=== PATIENT | female | born 1940 | race Caucasian/White ===

== ENCOUNTER 2016-07-14 16:43 | Inpatient (IN) | payer MEDICARE, BC ==
[~2016-07-14 16:43] MED LIST: CALCIUM +D & M1 EACH PO; COREG25 MG PO; COUMADIN5 M2 PO; DETROL2 MG PO; K-DUR20 ME1 PO; KEPPRA500 M3 PO; LEVAQUIN250 MG PO; LEVOTHROID25 MCG PO; LEVOTHYROXINE112 MC3 PO; LISINOPRIL40 M1 PO; MILK OF MAGNES311 MG PO; MIRALAX17 G2 PO; MOBIC15 M1 PO; MULTIVITAMIN1 TAB PO; NORCO 5/325 TAB1 TAB PO; SENOKOT-S TABL1 EACH PO; TAMBOCOR100 MG PO; TEKTURNA300 MG PO; TYLENOL325 M2 PO; ULTRAM50 M1 PO
[2016-07-14 18:28] LABS: INR 1.5 INR (0.9-1.1); PROTHROMBIN TIME 17.8 SECONDS (9.0-13.6)
[2016-07-14 19:55] LABS: BASO % 0.2 % (0-2); HCT-HEMATOCRIT 33.4 % (34.0-49.0); IMMATURE GRANULOCYTES ABSOLUTE 0.03 tho/cmm (0-0.03); IMMATURE GRANULOCYTES PERCENT 0.3 % (0-0.3); LYMPH % 4.2 % (20-45); LYMPH ABSOLUTE COUNT 0.4 tho/cmm (0.8-4.5); MCH (MEAN CORPUSCULAR HGB) 28.4 pg (28.0-32.0); MCHC MEAN CORPUSCULAR HGB CONC 32.9 % (32.0-36.0); MCV (MEAN CELL VOLUME) 86.3 fl (82.0-96.0); MEAN PLATELET VOLUME 11.1 cmc (9.4-12.4); MONO % 6.1 % (0-12); MONOCYTE ABSOLUTE COUNT 0.6 tho/cmm (0.0-1.2); NEUTROPHIL ABSOLUTE COUNT 9.3 tho/cmm (1.6-8.0); NEUTROPHIL-AUTOMATED 9.3 tho/cmm (1.6-8.0); NEUTROPHILS % 89.2 % (40-80); PLATELET COUNT 154 tho/cmm (150-450); RED BLOOD COUNT 3.87 mil/cmm (4.00-5.20); RED CELL DISTRIBUTION WIDTH 15.1 % (12.4-16.4); WHITE BLOOD COUNT 10.5 tho/cmm (4.0-10.0)
[2016-07-14 20:07] LABS: ANION GAP 11 mmol/L (0-20); BLOOD UREA NITROGEN 24 mg/dl (6-24); CALCIUM 8.6 mg/dl (8.5-10.5); CARBON DIOXIDE-VENOUS 27 mmol/L (22-32); CHLORIDE 101 mmol/l (96-110); CREATININE 0.64 mg/dl (0.50-1.10); GLUCOSE 178 mg/dL (70-110); POTASSIUM 3.3 mmol/L (3.7-5.1); SODIUM 136 mmol/L (135-145); eGFR VALUE FOR BLACK >90 mL/Min
[2016-07-15] MEDS ORDERED: AUGMENTIN 875-1 EAC2 PO (02:39)
[2016-07-15] MEDS ORDERED: [UNRECOGNIZED DRUG - OTHER] PO (02:40)
[2016-07-15] MEDS ORDERED: MELOXICAM15 M1 PO (02:41)
[2016-07-15] MEDS ORDERED: KLONOPIN0.5 M1 PO (02:43)
[2016-07-15 04:08] LABS: BASO % 0.1 % (0-2); HCT-HEMATOCRIT 35.2 % (34.0-49.0); HGB-HEMOGLOBIN 11.6 gm/dl (12.0-15.5); IMMATURE GRANULOCYTES ABSOLUTE 0.01 tho/cmm (0-0.03); IMMATURE GRANULOCYTES PERCENT 0.1 % (0-0.3); LYMPH % 3.1 % (20-45); LYMPH ABSOLUTE COUNT 0.3 tho/cmm (0.8-4.5); MCH (MEAN CORPUSCULAR HGB) 28.4 pg (28.0-32.0); MCV (MEAN CELL VOLUME) 86.1 fl (82.0-96.0); MEAN PLATELET VOLUME 11.7 cmc (9.4-12.4); MONO % 1.3 % (0-12); MONOCYTE ABSOLUTE COUNT 0.1 tho/cmm (0.0-1.2); NEUTROPHIL ABSOLUTE COUNT 8.6 tho/cmm (1.6-8.0); NEUTROPHIL-AUTOMATED 8.6 tho/cmm (1.6-8.0); NEUTROPHILS % 95.4 % (40-80); PLATELET COUNT 155 tho/cmm (150-450); RED BLOOD COUNT 4.09 mil/cmm (4.00-5.20); RED CELL DISTRIBUTION WIDTH 14.9 % (12.4-16.4)
[2016-07-15 04:11] LABS: INR 1.3 INR (0.9-1.1); PROTHROMBIN TIME 14.7 SECONDS (9.0-13.6)
[2016-07-15 04:18] LABS: ANION GAP 13 mmol/L (0-20); BLOOD UREA NITROGEN 25 mg/dl (6-24); CARBON DIOXIDE-VENOUS 24 mmol/L (22-32); CHLORIDE 107 mmol/l (96-110); CREATININE 0.81 mg/dl (0.50-1.10); GLUCOSE 206 mg/dL (70-110); POTASSIUM 3.7 mmol/L (3.7-5.1); SODIUM 140 mmol/L (135-145); eGFR VALUE FOR BLACK 81 mL/Min
[2016-07-15] MEDS ORDERED: NOVOLOG100 UNITS/ (15:00)
[2016-07-16 05:51] LABS: ANION GAP 13 mmol/L (0-20); BLOOD UREA NITROGEN 23 mg/dl (6-24); CARBON DIOXIDE-VENOUS 24 mmol/L (22-32); CHLORIDE 109 mmol/l (96-110); CREATININE 0.65 mg/dl (0.50-1.10); GLUCOSE 185 mg/dL (70-110); POTASSIUM 3.5 mmol/L (3.7-5.1); SODIUM 142 mmol/L (135-145); eGFR VALUE FOR BLACK >90 mL/Min
[2016-07-17 05:49] LABS: ANION GAP 12 mmol/L (0-20); BLOOD UREA NITROGEN 22 mg/dl (6-24); CALCIUM 8.1 mg/dl (8.5-10.5); CARBON DIOXIDE-VENOUS 27 mmol/L (22-32); CHLORIDE 106 mmol/l (96-110); CREATININE 0.58 mg/dl (0.50-1.10); GLUCOSE 136 mg/dL (70-110); POTASSIUM 3.3 mmol/L (3.7-5.1); SODIUM 142 mmol/L (135-145); eGFR VALUE FOR BLACK >90 mL/Min
--- NOTE | 2016-07-18 00:19 | NUR ---
PATIENT TRANSFERED TO ROOM 571 TO [facility]IRAN[facility] CORNELIUS AT 2220. PATIENT WAS ALERT AND ORIENTED X3. FORGETFUL AT TIMES. NO ABNORMAL VITAL SIGNS PRIOR TO TRANSFER. ROOM AIR, NO SOB OR CHEST PAIN. AMBULATES SBA/1A WITH WALKER AND GAITBELT. REPORT GIVEN TO RN PRIOR TO TRANSFER. RN DENIED QUESTIONS. CHART REVIEWED AT TIME OF ARRIVAL. SCD'S, PT GIVEN HS LOVENOX DOSE. REPORTED LAST TIME OF NORCO GIVEN. PT REPORTS SHE WILL NOTIFY FAMILY OF ROOM CHANGE. PHONE AND IPAD WITH CHARGERS AND OTHER BELONGINGS SENT WITH PATIENT. AMBULATION GOAL MET TODAY OF 5 TIMES IN HALLWAY. NO NEURO CHANGES ON SHIFT.
[2016-07-18 06:58] LABS: ANION GAP 11 mmol/L (0-20); BLOOD UREA NITROGEN 28 mg/dl (6-24); CALCIUM 8.3 mg/dl (8.5-10.5); CARBON DIOXIDE-VENOUS 28 mmol/L (22-32); CHLORIDE 104 mmol/l (96-110); CREATININE 0.66 mg/dl (0.50-1.10); GLUCOSE 151 mg/dL (70-110); POTASSIUM 3.2 mmol/L (3.7-5.1); SODIUM 140 mmol/L (135-145); eGFR VALUE FOR BLACK >90 mL/Min
[2016-07-19 07:18] LABS: BASO % 0.1 % (0-2); EOS % 1.8 % (0-7); EOSINOPHIL ABSOLUTE COUNT 0.2 tho/cmm (0.0-0.7); HCT-HEMATOCRIT 34.8 % (34.0-49.0); HGB-HEMOGLOBIN 11.5 gm/dl (12.0-15.5); IMMATURE GRANULOCYTES ABSOLUTE 0.04 tho/cmm (0-0.03); IMMATURE GRANULOCYTES PERCENT 0.4 % (0-0.3); LYMPH % 10.4 % (20-45); MCH (MEAN CORPUSCULAR HGB) 28.5 pg (28.0-32.0); MCV (MEAN CELL VOLUME) 86.4 fl (82.0-96.0); MEAN PLATELET VOLUME 11.2 cmc (9.4-12.4); NEUTROPHILS % 76.3 % (40-80); PLATELET COUNT 208 tho/cmm (150-450); RED BLOOD COUNT 4.03 mil/cmm (4.00-5.20); RED CELL DISTRIBUTION WIDTH 15.7 % (12.4-16.4); WHITE BLOOD COUNT 9.2 tho/cmm (4.0-10.0)
[2016-07-21 05:03] LABS: BASO % 0.3 % (0-2); EOS % 3.8 % (0-7); EOSINOPHIL ABSOLUTE COUNT 0.3 tho/cmm (0.0-0.7); HCT-HEMATOCRIT 36.6 % (34.0-49.0); IMMATURE GRANULOCYTES ABSOLUTE 0.03 tho/cmm (0-0.03); IMMATURE GRANULOCYTES PERCENT 0.4 % (0-0.3); LYMPH % 20.1 % (20-45); LYMPH ABSOLUTE COUNT 1.5 tho/cmm (0.8-4.5); MCH (MEAN CORPUSCULAR HGB) 28.4 pg (28.0-32.0); MCHC MEAN CORPUSCULAR HGB CONC 32.8 % (32.0-36.0); MCV (MEAN CELL VOLUME) 86.7 fl (82.0-96.0); MEAN PLATELET VOLUME 10.5 cmc (9.4-12.4); MONO % 12.8 % (0-12); NEUTROPHIL ABSOLUTE COUNT 4.8 tho/cmm (1.6-8.0); NEUTROPHIL-AUTOMATED 4.8 tho/cmm (1.6-8.0); NEUTROPHILS % 62.6 % (40-80); PLATELET COUNT 267 tho/cmm (150-450); RED BLOOD COUNT 4.22 mil/cmm (4.00-5.20); RED CELL DISTRIBUTION WIDTH 15.8 % (12.4-16.4); WHITE BLOOD COUNT 7.7 tho/cmm (4.0-10.0)
[2016-07-21 05:23] LABS: ANION GAP 11 mmol/L (0-20); BLOOD UREA NITROGEN 22 mg/dl (6-24); CALCIUM 8.5 mg/dl (8.5-10.5); CARBON DIOXIDE-VENOUS 30 mmol/L (22-32); CHLORIDE 104 mmol/l (96-110); CREATININE 0.64 mg/dl (0.50-1.10); GLUCOSE 160 mg/dL (70-110); POTASSIUM 3.8 mmol/L (3.7-5.1); SODIUM 141 mmol/L (135-145); eGFR VALUE FOR BLACK >90 mL/Min
[2016-07-21 05:27] LABS: TSH-THYROID STIMULATING HORM. 0.53 uIU/ml (0.40-3.80)
[2016-07-21] MEDS ORDERED: LOVENOX40 MG/0.1 SC (14:53)
[2016-07-21] MEDS ORDERED: IBUPROFEN600 M1 PO (14:55)
[2016-07-21] MEDS ORDERED: FLECAINIDE ACE100 M1 PO (15:01)
[2016-11-12] MEDS ORDERED: HYDRALAZINE HCL10 M1 PO (11:50)
[2016-11-12] MEDS ORDERED: [UNRECOGNIZED DRUG - OTHER] PO (11:50)
[2016-11-12] MEDS ORDERED: COREG6.25 M1 PO (11:51)
[2016-11-12] MEDS ORDERED: MELOXICAM15 M1 PO (11:51)
[2016-11-12] MEDS ORDERED: OXYBUTYNIN CHLOR5 M2 PO (12:08)
[2016-11-12] MEDS ORDERED: COUMADIN1 M1 PO (12:10)
[2016-11-12] MEDS ORDERED: COUMADIN5 M2 PO (12:34)
[2016-11-12] MEDS ORDERED: ASPIRIN EC81 MG PO (12:35)
[2016-11-12] MEDS ORDERED: MYRBETRIQ25 M1 PO (12:35)
[2016-11-13] MEDS ORDERED: [UNRECOGNIZED DRUG - REMARK] (10:09)
== END 2016-07-21 15:21 | DRG 21 ==
LOC: CCU 16:43 → ORE 20:39 → CCU 07-15 00:40 → 5EB 07-17 22:35
PROVIDERS: Family Medicine; Neurological Surgery; ADMIT Internal Medicine
PROC: 03LG0CZ Occlusion of Intracranial Artery with Extraluminal Device, Open Approach (ICD-10-PCS; principal; 2016-07-14)
PROC: 009U30Z Drainage of Spinal Canal with Drainage Device, Percutaneous Approach (ICD-10-PCS; 2016-07-14)
DX: I60.32 Nontraumatic subarachnoid hemorrhage from left posterior communicating artery (principal); G91.9 Hydrocephalus, unspecified; E11.65 Type 2 diabetes mellitus with hyperglycemia; R47.01 Aphasia; I48.0 Paroxysmal atrial fibrillation; I10 Essential (primary) hypertension; E03.9 Hypothyroidism, unspecified; E83.51 Hypocalcemia; Z79.01 Long term (current) use of anticoagulants
CPT/HCPCS: C1713; C1758; C1772; J0690; J1650; J1815; J2405; J7030; J7040; J7050; P9016; Q9967